=== PATIENT | male | born 1965 | race American Indian/Alaskan Native ===

== ENCOUNTER 2021-04-09 09:51 | Emergency (ER) | payer OTHER ==
[2021-04-09] MEDS ORDERED: diphenhydrAMINE 50 MG/ML VIAL IM ONE (09:56)
[2021-04-09] MEDS ORDERED: methylPREDNISolone Sod Succinate 125 MG/2 ML INJ IM ONE (09:56)
[2021-04-09] MEDS ORDERED: FAMOTIDINE 20 MG TAB PO ONE (09:56)
[2021-04-09 10:00] VITALS: BP 142/77
--- NOTE | 2021-04-09 10:59 | Emergency Department Report ---
HPI - General Chief Complaint: Allergic Reaction PUI?: No Time Seen by Provider: 04/09/21 09:56 - HPI HPI: The patient was evaluated in the emergency department for symptoms described in the history of present illness. He/she was evaluated in the context of the global COVID-19 pandemic, which necessitated consideration that the patient might be at risk for infection with the virus that causes COVID-19. Institutional protocols and algorithms that pertain to the evaluation of patients at risk for COVID-19 are in a state of rapid change based on information released by regulatory bodies including the CDC and federal and sta organizations. These policies and algorithms were followed during the patient's care in the emergency department. Please note that these policies, procedures and recommendations changed on a rapid basis. 56-year-old -Japanese male presents to the emergency room reporting he has been stung by many bees while at work. Patient states he has allergic reaction to bees. Patient states he started to have hives all over. Patient denies any shortness of breath or feeling like his throat was closing. Patient admits that he has an EpiPen but had left it at home today. Patient is taking nothing prior to arrival. ED Past Medical Hx - Past Medical History Previous Medical History?: No - Surgical History Past Surgical History?: Yes Additional Surgical History: hernia repair. low intestinal surgery - Social History Smoking Status: Current Every Day Smoker Substance Use Type: None - Medications Home Medications: Home Medications Medication Instructions Recorded Confirmed Last Taken Type EPINEPHrine [Epipen 2-Ezra] 0.3 mg IJ PRN PRN #1 auto.injct 01/12/16 Unknown Rx diphenhydrAMINE [Benadryl CAP] 25 mg PO Q6HR PRN #20 capsule 01/12/16 Unknown Rx methylPREDNISolone [Medrol Dose 4 mg PO DAILY #1 pack 01/12/16 Unknown Rx Ezra] Cyclobenzaprine [Flexeril] 10 mg PO TID PRN #20 tablet 08/27/18 Unknown Rx HYDROcodone/APAP 5-325 [Inez 1 each PO Q6HR PRN #10 tablet 08/27/18 Unknown Rx 5/325] Ibuprofen [Ibuprofen 400] 400 mg PO QID 5 Days #20 tablet 08/27/18 Unknown Rx Famotidine [Pepcid] 20 mg PO BID 10 Days #20 tablet 04/09/21 Unknown Rx Loratadine/Pseudoephedrine 1 tab PO DAILY #20 tablet 04/09/21 Unknown Rx [Claritin-D 24Hr] methylPREDNISolone [Medrol 4MG 4 mg PO QDAY #1 tab.ds.pk 04/09/21 Unknown Rx DOSEPAK (21 tabs)] ED Review of Systems ROS: Stated complaint: STUNG BY A BEE/ ALLERGIC REACTION Other details as noted in HPI Comment: All other systems reviewed and negative Physical Exam - Physical Exam Vital Signs: Vital Signs 04/09/21 09:59 Temperature 98.0 F Pulse Rate 67 Respiratory 22 Rate Blood Pressure 142/77 [Right] O2 Sat by Pulse 100 Oximetry Physical Exam: General: Awake, appropriately interactive, no acute distress. Neck: Supple. Full range of motion intact. Cardiovascular: Normal peripheral perfusion. Pulmonary: No respiratory distress. Patient is speaking normally without use of accessory muscles. Skin: Multiple urticaria lesions on trunk of body. Neurological: No facial asymmetry. Speech is clear. Follows commands. Patient is alert and oriented. Musculoskeletal: Full range of motion, no crepitus. Able to bear weight and ambulate without difficulty. Distal neurovascular and motor/sensory function is intact. Psych: Cooperative. Appropriate mood and affect. ED Course Vital Signs 04/09/21 09:59 Temperature 98.0 F Pulse Rate 67 Respiratory 22 Rate Blood Pressure 142/77 [Right] O2 Sat by Pulse 100 Oximetry ED Medical Decision Making - Medical Decision Making 56-year-old -Japanese male presents to the emergency room reporting he has been stung by many bees while at work. Patient states he has allergic reaction to bees. Patient states he started to have hives all over. Patient denies any shortness of breath or feeling like his throat was closing. Patient admits that he has an EpiPen but had left it at home today. Patient is taking nothing prior to arrival. Patient was given Pepcid 40 mg p.o. Benadryl 25 mg IM in Solu-Medrol 125 mg IM. Patient will be discharged on a prednisone pack Pepcid. Instructed patient to keep his EpiPen with him. Discussed with patient if his symptoms get worse or new symptoms arise to follow-up in the ER. Critical care attestation.: If time is entered above; I have spent that time in minutes in the direct care of this critically ill patient, excluding procedure time. ED Disposition Clinical Impression: Bee sting allergy Disposition: HOME / SELF CARE / HOMELESS Is pt being admited?: No Does the pt Need Aspirin: No Condition: Stable Instructions: How to Use an Auto-Injector Pen, Allergies, Adult, [id number] Additional Instructions: Take medications as prescribed. Be sure to keep your EpiPen with you at all times. Return back to the emergency room any worsening symptoms or new symptoms. Prescriptions: Loratadine/Pseudoephedrine [Claritin-D 24Hr] 1 tab PO DAILY #20 tablet methylPREDNISolone [Medrol 4MG DOSEPAK (21 tabs)] 4 mg PO QDAY #1 tab.ds.pk Famotidine [Pepcid] 20 mg PO BID 10 Days #20 tablet Referrals: PRIMARY CAREMD [Primary Care Provider] - 3-5 Days BETTIE GARSIA MD [Staff Physician] - 3-5 Days Forms: Work/School Release Form(ED)
== END 2021-04-09 11:26 | disposition home or self-care (01) ==
LOC: ED 09:51
DX: T63.441A Toxic effect of venom of bees, accidental (unintentional), initial encounter (principal); F17.200 Nicotine dependence, unspecified, uncomplicated; Z91.030 Bee allergy status; Y92.89 Other specified places as the place of occurrence of the external cause
CPT/HCPCS: 96372; 99282; J1200; J2930